=== PATIENT | female | born 1960 | race Caucasian/White ===

== ENCOUNTER → 2018-07-23 | Outpatient (CLI) | payer BC | END | disposition home or self-care (01) | LOC: FIMAGING 11:34 | PROVIDERS: ATTEND Nurse Practitioner | DX: R22.32 Localized swelling, mass and lump, left upper limb (principal); R22.2 Localized swelling, mass and lump, trunk; C50.919 Malignant neoplasm of unspecified site of unspecified female breast; Z79.811 Long term (current) use of aromatase inhibitors; Z90.13 Acquired absence of bilateral breasts and nipples ==

== ENCOUNTER → 2018-10-27 | Outpatient (CLI) | payer BC ==
[~2018-10-27] MED LIST: BUPIVACAINE 0.25% 30 ML SDV ONE; CHLORHEXIDINE GLUC HIBICLENS 118 ML BTL TP ONE; EPINEPHrine 1 MG/ML INJ ONE; GENTAMICIN SULFATE 80 MG/2 ML VIAL ONE; POVIDONE-IODINE 30 GM OINTTUBE TP ONE; THROMBIN (BOVINE) 20,000 UNIT VIAL TP ONE
== END ==
LOC: FIMAGING 11:24
PROVIDERS: ATTEND Internal Medicine Hematology & Oncology
DX: R22.2 Localized swelling, mass and lump, trunk (principal); Z85.3 Personal history of malignant neoplasm of breast; Z90.11 Acquired absence of right breast and nipple
CPT/HCPCS: J0171; J1580